=== PATIENT | female | born 1975 | race Two or more races ===

== ENCOUNTER 2023-07-07 19:40 | Emergency (ER) | payer SELFPAY ==
[~2023-07-07] VITALS: Ht 157.5 cm; Wt 82.0 kg
[2023-07-07 19:50] VITALS: BP 123/84; PULSE 99; RESP 16; TEMP 98.3
[2023-07-07 22:15] VITALS: O2SAT 96
[2023-07-07] MEDS ORDERED: ALBU108A5 IN (23:01)
== END 2023-07-07 23:31 | disposition home or self-care (01) ==
LOC: ER 19:40
DX: B34.9 Viral infection, unspecified (principal)

== ENCOUNTER 2024-06-23 20:05 | Emergency (ER) | payer SELFPAY ==
[~2024-06-23] VITALS: Ht 157.5 cm; Wt 119.0 kg
[~2024-06-23 20:05] MED LIST: ALBU108A5 IN
--- NOTE | 2024-06-23 21:19 | ED.PDOC ---
Back pain HPI HPI Comments This is a 49-year-old female presents to the ED chief complaint right wrist pain. Patient states about 45 minutes prior to arrival and main triage she was skating on a skateboard lost her balance and then tried to catch her fall with her right hand and wrist. She notes she notes pain to the right wrist 10/10 on pain scale sharp shooting with tingling sensation. She denies any weakness. Denies any other known injury denies head trauma LOC, neck or back pain. 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 06/23/24 Hydrocodone-Acetaminophen (Hydrocodone Bitartrate/AC 10-325 mg) 1 Tab Tab, 1 TAB PO Q8HP PRN, #20 TAB Prov:CATHY MCCORMICK PAC 06/23/24 Albuterol Sulfate (Albuterol Sulfate Hfa) 108 Mcg/Act Aer, 108 MCG IN BIDP PRN, #1 AER Prov:JED STREETER PAC 07/07/23 Information Source: Patient Mode of Arrival: Ambulatory Past Medical History PAST MEDICAL HISTORY: Asthma Surgical History: Denies all surgeries Family History Family History: Reviewed,noncontributory to illness Social History Smoker: Non-Smoker Alcohol: Denies ETOH Use Drugs: Denies Drug Use Constitutional: denies: chills, diaphoresis, fatigue, fever, malaise, sweats, weakness, others EENTM: denies: blurred vision, double vision, ear bleeding, ear discharge, ear drainage, ear pain, ear ringing, eye pain, eye redness, hearing loss, mouth pain, mouth swelling, nasal discharge, nose bleeding, nose congestion, nose pain, photophobia, tearing, throat pain, throat swelling, voice changes, others Respiratory: denies: cough, hemoptysis, orthopnea, SOB at rest, shortness of breath, SOB with excertion, stridor, wheezing, others Cardiovascular: denies: chest pain, dizzy spells, diaphoresis, Dyspnea on exertion, edema, irregular heart beat, left arm pain, lightheadedness, palpitations, PND, syncope, others Gastrointestinal: denies: abdomen distended, abdominal pain, blood streaked bowels, constipated, diarrhea, dysphagia, difficulty swallowing, hematemesis, melena, nausea, poor appetite, poor fluid intake, rectal bleeding, rectal pain, vomiting, others Genitourinary: denies: abnormal vagina bleeding, burning, dyspareunia, dysuria, flank pain, frequency, hematuria, incontinence, pain, , vagina discharge, urgency, others Neurological: denies: dizziness, fainting, headache, left sided numbness, left sided weakness, numbness, paresthesia, pre-existing deficit, right sided numbness, right sided weakness, seizure, speech problems, tingling, tremors, weakness, others Musculoskeletal: reports: others (Right wrist pain); denies: back pain, gout, joint pain, joint swelling, muscle pain, muscle stiffness, neck pain Integumetry: denies: bruises, change in color, change in hair/nails, dryness, laceration, lesions, lumps, rash, wounds, others Allergic/Immunocompromised: denies: Difficulty Healing, Frequent Infections, Hives, Itching, others Hematologic/Lymphatic: denies: anemia, blood clots, easy bleeding, easy bruising, swollen glands, others Endocrine: denies: excessive hunger, excessive sweating, excessive thirst, excessive urination, flushing, intolerance to cold, intolerance to heat, unexplained weight gain, unexplained weight loss, others Psychiatric: denies: anxiety, bipolar disorder, depression, hopeless, panic disorder, schizophrenia, sleepless, suicidal, others Physical Exam General Appearance: No Apparent Distress, Normal HEENT: Pharynx Normal Neck: Full Range of Motion, Non-Tender Respiratory: Lungs Clear, No Respiratory Distress, Normal Breath Sounds Cardiovascular: No Murmur, Normal Peripheral Pulses, Regular Rate/Rhythm Breast Exam: Deferred Gastrointestinal: Non Tender, Soft Genitalia: Deferred Pelvic: Deferred Rectal: Deferred Extremities: Normal capillary refill, Normal inspection, Normal range of motion, Non-tender, No pedal edema Musculoskeletal : Location: Right Extremity Location: Wrist (Moderate tenderness over dorsal aspect of distal radius with moderate edema and ecchymosis. Cap refill less than 3 seconds. Strength sensory and motion intact. Radial pulse positive.) Apperance: Normal Neurologic: Alert, returned item clerk II-XII nml as Tested, No Motor Deficits, Normal Affect, Normal Mood, No Sensory Deficits Cerebellar Function: Normal Reflexes: Normal Skin: Dry, Normal Color, Warm Lymphatic: No Adenopathy Was a procedure done? Was a procedure done?: No Back Pain Differential Dx Differential Diagnosis: Fracture, Musculoskeletal Pain X-Ray, Labs, Meds, VS Vital Signs Date Time Temp Pulse Resp B/P (MAP) Pulse Ox O2 Delivery O2 Flow Rate FiO2 06/23/24 21:41 97.8 76 20 115/69 (84) 98 97.8 06/23/24 21:41 76 20 98 Room Air 06/23/24 20:47 97.8 76 22 132/83 (99) 98 Current Medications Medications (Trade) Dose Ordered Sig/Carly Route Start Time Stop Time Status Last Admin Ketorolac Tromethamine (Toradol Injection) 60 mg ONCE ONCE IM 06/23/24 21:30 06/23/24 21:31 DC 06/23/24 21:37 Acetaminophen/ Hydrocodone Bitart ([place] 5/325MG Tab) 1 tab ONCE ONCE PO 06/23/24 21:30 06/23/24 21:31 DC 06/23/24 21:37 X-Ray, Labs, Meds, VS Comment Right wrist x-ray shows Displaced and angulated fracture of the distal radial metaphysis. Fracture of the ulnar styloid process. There is moderate diffuse soft tissue edema. Patient placed in splint and sling applied. Patient tolerated well positive CSM before and after. Script hydrocodone advised no alcohol or driving while on medication, script ibuprofen 800 mg. Advised on rice. Referral information given to patient with number contact information to call in the morning for ortho hand wrist. Advised likely need surgery possibly reduction and internal fixation. Advised to keep the splint on until she follows up with ortho. Advised to follow back up in the ER for weakness increasing numbness increasing pain and swelling or any concerning symptoms patient indicated understanding agrees with discharge plan of care Time of 1ST Reevaluation: 22:34 Reevaluation 1ST: Improved Patient Education/Counseling: Diagnosis, Treatment, Prognosis, Need For Follow Up Family Education/Counseling: Diagnosis, Treatment, Prognosis, Need For Follow Up Departure 1 Departure Time of Disposition: 22:34 Impression: Primary Impression: Closed fracture of metaphysis of distal end of right radius Additional Impression: Fracture of styloid process of right ulna Qualified Codes: S52.611A - Displaced fracture of right ulna styloid process, initial encounter for closed fracture Disposition: HOME / SELF CARE / HOMELESS Condition: Stable e-Prescriptions Ibuprofen (Ibuprofen) 800 Mg Tab 1 TAB PO TID PRN for 10 Days, #30 TAB Prov: ISA GARCIAP 06/23/24 Hydrocodone-Acetaminophen (Hydrocodone Bitartrate/AC 10-325 mg) 1 Tab Tab 1 TAB PO Q8HP PRN, #20 TAB Prov: CATHY MCCORMICK PAC 06/23/24 Discharged With: Spouse Critical Care Note Critical Care Time?: No Stability Stability form required: No ISA GARCIA [facility] Jun 23, 2024 21:19
--- NOTE | 2024-06-23 21:32 | DVH ---
INDICATION: wrist pain/injury TECHNIQUE: 4 radiographic views of the right wrist were obtained. COMPARISON: None Findings/ IMPRESSION: Displaced and angulated fracture of the distal radial metaphysis. Fracture of the ulnar styloid pro cess. There is moderate diffuse soft tissue edema.
[2024-06-23] MEDS: HYDROcodone-ACET 5/325MG TAB PO ONE (21:37)
[2024-06-23] MEDS: KETOROLAC TROMETH 60MG/2ML VIAL IM ONE (21:37)
[2024-06-23 21:41] VITALS: BP 115/69; PULSE 76; RESP 20; TEMP 97.8; O2SAT 98
[2024-06-23] MEDS ORDERED: HYDR-4798 PO (22:37)
[2024-06-23] MEDS ORDERED: IBUP-1456 PO (22:40)
== END 2024-06-23 22:49 | disposition home or self-care (01) ==
LOC: ER 20:05
DX: S52.611A Displaced fracture of right ulna styloid process, initial encounter for closed fracture (principal); S52.391A Other fracture of shaft of radius, right arm, initial encounter for closed fracture; J45.909 Unspecified asthma, uncomplicated; Z79.899 Other long term (current) drug therapy; V00.131A Fall from skateboard, initial encounter; Y93.51 Activity, roller skating (inline) and skateboarding; Y92.89 Other specified places as the place of occurrence of the external cause; Y99.8 Other external cause status
CPT/HCPCS: 29125; 73110; 96372; 99283; J1885